=== PATIENT | male | born 1965 ===

== ENCOUNTER 2022-11-26 05:43 | Outpatient (CLI) | payer BC ==
[~2022-11-26] VITALS: Ht 160 cm; Wt 61.2 kg
[2022-11-26] MEDS ORDERED: ATOR40TA70 PO (10:30)
[2022-11-26] MEDS ORDERED: LISI1TAB46 PO (10:30)
== END 2022-11-26 10:34 | disposition home or self-care (01) ==
LOC: PREOP 05:43
PROVIDERS: ATTEND Surgery
DX: Z01.818 Encounter for other preprocedural examination (principal)

== ENCOUNTER 2022-12-08 08:20 | Day surgery (SDC) | payer BC ==
[~2022-12-08] VITALS: Ht 160 cm; Wt 61.2 kg
[~2022-12-08 08:20] MED LIST: ATOR40TA70 PO; LACTATED RINGERS 1,000 ML IV STA; LISI1TAB46 PO
[2022-12-08] MEDS ORDERED: HURRICAINE EXT TUBE (BENZOCAINE) XX PRN (08:30)
[2022-12-08 08:40] VITALS: BP 131/101
--- NOTE | 2022-12-08 08:49 | Progress Note-Pre Operative ---
Pre-Operative Progress Note Date of Available H&P: Nov 25, 2022 Date H&P Reviewed: Dec 08, 2022 Time H&P Reviewed: 08:43 History & Physical: H&P Reviewed, Patient Examed, No changes noted Pre-Operative Diagnosis: Rectal bleed, GERD, Diarrhea NICHOLAS TURK DO Dec 08, 2022 08:48
[2022-12-08] MEDS ORDERED: PROPOFOL INJECTION 100 ML IV ONE (09:02)
--- NOTE | 2022-12-08 09:22 | Anesthesia-General Post-Op ---
MAC Patient Condition Mental Status/LOC: Same as Preop Cardiovascular: Satisfactory Nausea/Vomiting: Absent Respiratory: Satisfactory Pain: Controlled Complications: Absent Post Op Complications Complications None Follow Up Care/Instructions Patient Instructions None needed. Anesthesiology Discharge Order Discharge Order Patient is doing well, no complaints, stable vital signs, no apparent adverse anesthesia problems. No complications reported per nursing. TRINI SMITH CRNA Dec 08, 2022 09:22
[2022-12-08 09:25] VITALS: BP 89/53
--- NOTE | 2022-12-08 09:29 | Progress Note-Post Operative ---
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 He was administered IV sedation by the [employer] LIE[employer]NT who then monitored vitals the entire time, heart rate, blood pressure and pulse ox and the scope was inserted down the mouth through the esophagus into the stomach. On the way down, noted some mild esophagitis, took a picture, pushed into the stomach and saw the Pylorus. It appeared to be erythematous and I thought I saw an ulcer. Then pushed past the antrum into the duodenum. Duodenum looked good. Pulled back and did a biopsy of the antrum and of the possible ulcer. Then retroflexed the scope, did not see a hiatal hernia, took a picture and then pulled the scope into the GE junction and then did a biopsy of the GE junction. Pushed the scope back into the stomach, suctioned all the air out of the stomach. At this point pulled the scope up the esophagus and out the mouth. Switched camera, switched gloves, went down below and started the colonoscopy. Pushed all the way to about 80 cm and pushed into the cecum, took a picture of appendiceal orifice and noted the ileocecal valve. I found two polyps in the ascending colon and removed them both with snare. I had seen erythema throughout the colon and elected to do random biopsies of the colon; approximately 7 total. Then slowly withdrew the scope insufflating to look circumferentially at the dao starting in the cecum, up the ascending colon to the hepatic flexure, then down the transverse colon, splenic flexure, into the descending colon down in the sigmoid and then into the rectal vault. I took a picture of the internal hemorrhoids as I pulled the scope out. The patient tolerated the procedure and he recovered in the endoscopy suite. Recommended for repeat colonoscopy in 5 years Anesthesia Type IV sedation by [employer] Estimated Blood Loss Estimated blood loss (mL): scant Specimens/Packing Specimens Removed antral bx ??antral ulcer GE jxn Asc colon polyp x 2 Random colon bx NICHOLAS TURK DO Dec 08, 2022 09:29
[2022-12-08 09:30] VITALS: BP 96/66
--- NOTE | 2022-12-08 09:30 | Endoscopy Discharge Instruct ---
Endo Procedure/Findings Findings 1.: Gastric Ulcer, Gastritis 2.: Polyp 3.: Internal Hemorrhoids Discharge Instructions - Activity: You might feel a little sleepy until tomorrow. This is due to the medicine you received to relax you. Until tomorrow, you should: NOT drive a car, operate machinery or power tools. NOT drink any alcoholic beverages. NOT make any important decisions or sign importortant papers. Do not return to work until tomorrow, unless otherwise instructed. Resume previous activities tomorrow. Diet: Start by taking liquids. If you tolerate liquids, advance to solid food. 1.: EGD in 3 years 2.: Colonscopy in 5 years Notify Physician - If you experience excessive bleeding, unusual abdominal pain, fever, or chest pain, contact your doctor immediately. Follow-Up: Other Follow up in my office in one week NICHOLAS TURK DO Dec 08, 2022 09:30
[2022-12-08 09:35] VITALS: BP 96/66
[2022-12-08 10:00] VITALS: BP 96/66
== END 2022-12-08 10:00 | disposition home or self-care (01) ==
LOC: ENDO 08:20
PROVIDERS: ATTEND Surgery
DX: D12.2 Benign neoplasm of ascending colon (principal); K29.70 Gastritis, unspecified, without bleeding; K22.70 Barrett's esophagus without dysplasia; K21.00 Gastro-esophageal reflux disease with esophagitis, without bleeding; K25.4 Chronic or unspecified gastric ulcer with hemorrhage; K31.89 Other diseases of stomach and duodenum; K63.89 Other specified diseases of intestine; K59.09 Other constipation; K62.5 Hemorrhage of anus and rectum; Z28.310 Unvaccinated for COVID-19; Z79.899 Other long term (current) drug therapy
CPT/HCPCS: 88305